=== PATIENT | female | born 1940 | race African-American/Black ===

== ENCOUNTER 2019-04-20 16:49 | Inpatient (IN) | payer OTHER ==
[~2019-04-20] VITALS: Ht 154.9 cm; Wt 74.8 kg
[2019-04-20 12:45] VITALS: BP 116/77
[2019-04-20] MEDS ORDERED: ONDANSETRON HCL 4MG/2ML INJ IV STA (17:33)
[2019-04-20] MEDS ORDERED: SODIUM CHLORIDE 0.9% 1,000 ML IV ONE (17:33)
[2019-04-20] MEDS ORDERED: MORPHINE SULFATE 4 MG/ML CPJ (NOT FOR IM USE) IV STA (17:33)
[2019-04-20 18:28] LABS: HEMATOCRIT. 26.3 % (36.0-48.0); HEMOGLOBIN. 8.6 g/dL (12.0-16.0); MEAN CORPUSCULAR HEMOGLOBIN 35.1 pg (28.0-32.0); MEAN CORPUSCULAR VOLUME 107.3 fL (81.0-99.0); MEAN PLATELET VOLUME 10.9 fl (7.4-10.4); PLATELET 139 x1000/uL (130-400); RED BLOOD CELL COUNT 2.45 mill/uL (4.2-5.4); RED CELL DISTRIBUTION WIDTH 20.3 % (11.6-14.6)
[2019-04-20 18:31] LABS: CHLORIDE 105 mEq/L (98-107)
[2019-04-20 19:41] LABS: PLATELET ESTIMATE NORMAL
[2019-04-20] MEDS ORDERED: KETOROLAC 15MG/ML VIAL IV ONE (20:00)
[2019-04-20] MEDS ORDERED: MORPHINE SULFATE 4 MG/ML CPJ (NOT FOR IM USE) IV ONE (20:00)
[2019-04-20] MEDS ORDERED: ASPIRIN 325MG TABLET PO ONE (20:00)
[2019-04-20] MEDS ORDERED: FUROSEMIDE 20MG/2ML VIAL IVP SCH (22:45)
[2019-04-21] MEDS ORDERED: DIGOXIN 500MCG/2ML AMP IV SCH (00:30)
[2019-04-21 00:45] VITALS: BP 116/77
[2019-04-21] MEDS ORDERED: LENA25CA MT ×2 (01:49→14:09)
[2019-04-21] MEDS ORDERED: NIFE20CA PO (01:49)
[2019-04-21] MEDS ORDERED: DEXA4TAB PO (01:49)
[2019-04-21] MEDS ORDERED: CHOL20004 MT (01:49)
[2019-04-21] MEDS ORDERED: ASPI-1393 PO (01:49)
[2019-04-21] MEDS ORDERED: KRIL500C PO (01:49)
[2019-04-21] MEDS ORDERED: METO-396 MT (01:49)
[2019-04-21] MEDS ORDERED: CYAN-33 MT (01:49)
[2019-04-21] MEDS ORDERED: ONDANSETRON HCL 4MG/2ML INJ IV PRN (03:45)
[2019-04-21 03:57] LABS: CREATINE KINASE 37 IU/L (26-192)
[2019-04-21 04:02] LABS: CREATINE KINASE MB FRACTION < 1.0 ng/mL (0.5-3.6)
[2019-04-21] MEDS: MORPHINE SULFATE 2 MG/ML CPJ (NOT FOR IM USE) IV PRN ×2 (04:40→08:49)
[2019-04-21 08:00] VITALS: BP 136/56
[2019-04-21] MEDS: DEXAMETHASONE 4MG TABLET PO SCH (08:46)
[2019-04-21] MEDS: METOPROLOL TARTRATE 25MG TABLET PO SCH ×2 (08:47→21:54)
[2019-04-21] MEDS ORDERED: ENOXAPARIN 40MG/0.4ML SYR SUBCUT SCH (09:00)
[2019-04-21] MEDS ORDERED: NIFEDIPINE XL 60MG TAB PO SCH (09:00)
[2019-04-21] MEDS ORDERED: ENOXAPARIN 30MG/0.3ML SYR SUBCUT SCH (09:00)
[2019-04-21 12:00] VITALS: BP 129/66
[2019-04-21] MEDS ORDERED: INFLUENZA VIRUS VACCINE(AFLURIA) 0.5ML SYR IM ONE (12:00)
[2019-04-21] MEDS ORDERED: FUROSEMIDE 40MG/4ML VIAL IVP NR (12:58)
[2019-04-21 13:45] LABS: BG BASE EXCESS -7.7 mmol/L (-2.0-2.0); BG CARBOXYHEMOGLOBIN 1.3 % (0.5-1.5); BG DEOXYHEMOGLOBIN 11.8 % (0.0-5.0); BG FRACTION INSPIRED OXYGEN 21; BG HCO3 ACT 16.4 mmol/L (22.0-26.0); BG METHEMOGLOBIN 0.3 % (0.0-1.5); BG OXYHEMOGLOBIN 86.6 % (94.0-97.0); BG PCO2 28.4 mmHg (35.0-45.0); BG SAMPLE SITE RIGHT RADIAL; BG TOTAL HEMOGLOBIN 8.3 g/dL (12.0-18.0); BG VENT MODE ROOM AIR
[2019-04-21] MEDS ORDERED: DEXTROSE 50% WATER 50ML SYRINGE IV PRN (15:45)
[2019-04-21] MEDS ORDERED: LEVOFLOXACIN 500MG PREMIX 100 ML IV SCH (15:45)
[2019-04-21] MEDS ORDERED: ACETAMINOPHEN 325MG TABLET PO PRN (15:45)
[2019-04-21] MEDS ORDERED: LORAZEPAM 2MG/ML CPJ IV PRN (15:45)
[2019-04-21] MEDS ORDERED: HYDRALAZINE 20MG/ML VIAL IV PRN (15:45)
[2019-04-21] MEDS ORDERED: DIPHENHYDRAMINE 50MG/ML VIAL IV PRN (15:45)
[2019-04-21] MEDS ORDERED: IPRATROPIUM/ALBUTEROL 0.5-3(2.5)MG/3ML NEB HHN PRN (15:45)
[2019-04-21] MEDS ORDERED: ACETAMINOPHEN 650MG SUPP PR PRN (15:45)
[2019-04-21] MEDS ORDERED: LACTULOSE 20G/30ML UDC PO PRN (15:45)
[2019-04-21] MEDS ORDERED: MAGNESIUM/ALUMINUM HYDROXIDE/SIMETHICONE 30ML UDC PO PRN (15:45)
[2019-04-21 15:52] VITALS: BP 121/64
[2019-04-21] MEDS: AMLODIPINE 2.5MG TABLET PO SCH (15:53)
[2019-04-21] MEDS: ASPIRIN 81MG TABLET PO SCH (15:53)
[2019-04-21] MEDS: FUROSEMIDE 40MG/4ML VIAL IVP SCH ×2 (15:54→17:12)
[2019-04-21] MEDS: BLOOD SUGAR DIAGNOSTIC STRIP TEST SCH ×2 (17:01→21:49)
[2019-04-21] MEDS: INSULIN LISPRO 100 UNITS/ML SUBCUT SCH ×2 (17:03→21:00)
[2019-04-21] MEDS: FAMOTIDINE 20MG/2ML VIAL IV SCH (17:13)
[2019-04-21] MEDS: REVLIMID 25 MG PO SCH (17:37)
[2019-04-21] MEDS ORDERED: LEVOFLOXACIN 500MG PREMIX 100 ML IV NR (18:00)
[2019-04-21 18:10] LABS: CLARITY URINE CLOUDY (CLEAR); COLOR URINE YELLOW (YELLOW); KETONES URINE NEGATIVE (NEGATIVE); LEUKOCYTE ESTERASE URINE TRACE (NEGATIVE); NITRITE URINE NEGATIVE (NEGATIVE); OCCULT BLOOD URINE NEGATIVE (NEGATIVE); PROTEIN URINE 1+ (NEGATIVE); SPECIFIC GRAVITY URINE 1.016 (1.005-1.030)
[2019-04-21] MEDS ORDERED: MORPHINE SULFATE 2 MG/ML CPJ (NOT FOR IM USE) IV PRN (19:45)
[2019-04-21 20:00] VITALS: BP 117/66
[2019-04-21 20:27] LABS: INR 1.4
[2019-04-21 20:29] LABS: CHLORIDE 104 mEq/L (98-107)
[2019-04-21] MEDS: IPRATROPIUM/ALBUTEROL 0.5-3(2.5)MG/3ML NEB HHN SCH (20:37)
[2019-04-21] MEDS: BUDESONIDE 0.5MG/2ML NEB HHN SCH (20:37)
[2019-04-21 20:39] LABS: CREATINE KINASE 51 IU/L (26-192)
[2019-04-21 20:41] LABS: CREATINE KINASE MB FRACTION < 1.0 ng/mL (0.5-3.6)
[2019-04-21 20:50] LABS: HEMATOCRIT. 23.6 % (36.0-48.0); HEMOGLOBIN. 7.6 g/dL (12.0-16.0); MEAN CORPUSCULAR HEMOGLOBIN 34.4 pg (28.0-32.0); MEAN CORPUSCULAR VOLUME 106.8 fL (81.0-99.0); MEAN PLATELET VOLUME 11.5 fl (7.4-10.4); PLATELET 70 x1000/uL (130-400); RED BLOOD CELL COUNT 2.21 mill/uL (4.2-5.4); RED CELL DISTRIBUTION WIDTH 20.7 % (11.6-14.6)
[2019-04-21 22:33] LABS: PLATELET ESTIMATE MARKEDLY DECREASED
[2019-04-22] VITALS: BP 115/75
[2019-04-22] MEDS: IPRATROPIUM/ALBUTEROL 0.5-3(2.5)MG/3ML NEB HHN SCH ×4 (01:11→20:33)
[2019-04-22 04:00] VITALS: BP 125/89
[2019-04-22] MEDS: BLOOD SUGAR DIAGNOSTIC STRIP TEST SCH ×4 (06:21→21:00)
[2019-04-22] MEDS: INSULIN LISPRO 100 UNITS/ML SUBCUT SCH ×4 (06:41→21:00)
[2019-04-22] MEDS: FUROSEMIDE 40MG/4ML VIAL IVP SCH ×2 (06:41→17:20)
[2019-04-22 08:00] VITALS: BP 122/59
[2019-04-22] MEDS: BUDESONIDE 0.5MG/2ML NEB HHN SCH ×2 (08:11→20:33)
[2019-04-22] MEDS: ASPIRIN 81MG TABLET PO SCH (08:23)
[2019-04-22] MEDS: CARVEDILOL 3.125 MG TABLET PO SCH ×2 (08:23→21:00)
[2019-04-22] MEDS: AMLODIPINE 2.5MG TABLET PO SCH (08:23)
[2019-04-22] MEDS: DEXAMETHASONE 4MG TABLET PO SCH (08:23)
[2019-04-22] MEDS: REVLIMID 25 MG PO SCH (08:24)
[2019-04-22] MEDS: FAMOTIDINE 20MG/2ML VIAL IV SCH (08:25)
[2019-04-22] MEDS ORDERED: POTASSIUM CHLORIDE 20MEQ TABLET SR PO SCH (09:00)
[2019-04-22 12:00] VITALS: BP 121/51
[2019-04-22 12:15] LABS: BG BASE EXCESS -9.8 mmol/L (-2.0-2.0); BG CARBOXYHEMOGLOBIN 0.7 % (0.5-1.5); BG FRACTION INSPIRED OXYGEN 21; BG HCO3 ACT 14.7 mmol/L (22.0-26.0); BG METHEMOGLOBIN 0.1 % (0.0-1.5); BG OXYGEN SATURATION 47.6 % (92.0-98.5); BG OXYHEMOGLOBIN 47.2 % (94.0-97.0); BG PCO2 26.9 mmHg (35.0-45.0); BG PH 7.354 (7.350-7.450); BG SAMPLE SITE RIGHT RADIAL; BG TOTAL HEMOGLOBIN 8.1 g/dL (12.0-18.0); BG VENT MODE ROOM AIR
[2019-04-22 15:58] LABS: MEAN CORPUSCULAR HEMOGLOBIN 34.9 pg (28.0-32.0); MEAN CORPUSCULAR VOLUME 105.1 fL (81.0-99.0); MEAN PLATELET VOLUME 11.7 fl (7.4-10.4); PLATELET 75 x1000/uL (130-400); RED BLOOD CELL COUNT 1.99 mill/uL (4.2-5.4); RED CELL DISTRIBUTION WIDTH 20.1 % (11.6-14.6)
[2019-04-22 16:00] VITALS: BP 131/58
[2019-04-22 16:06] LABS: HEMATOCRIT. 20.9 % (36.0-48.0); HEMOGLOBIN. 6.9 g/dL (12.0-16.0)
[2019-04-22] MEDS ORDERED: FUROSEMIDE 40MG/4ML VIAL IVP NR (18:00)
[2019-04-22] MEDS ORDERED: LEVOFLOXACIN 250MG PREMIX 50 ML IV SCH (18:00)
[2019-04-22 20:00] VITALS: BP 119/85
[2019-04-23] VITALS (12 sets, daily range): BP systolic 115–141; BP diastolic 42–75
[2019-04-23 00:38] LABS: PLATELET ESTIMATE DECREASED
[2019-04-23] MEDS: IPRATROPIUM/ALBUTEROL 0.5-3(2.5)MG/3ML NEB HHN SCH ×4 (02:34→20:08)
[2019-04-23] MEDS: INSULIN LISPRO 100 UNITS/ML SUBCUT SCH ×4 (06:00→20:52)
[2019-04-23] MEDS: BLOOD SUGAR DIAGNOSTIC STRIP TEST SCH ×4 (06:26→20:52)
[2019-04-23 07:19] LABS: BASOPHILS % 0.1 % (0.0-2.0); EOSINOPHILS % 0.3 % (0.0-5.0); HEMATOCRIT. 24.5 % (36.0-48.0); HEMOGLOBIN. 8.2 g/dL (12.0-16.0); LYMPHOCYTES % 10.3 % (20.0-50.0); MEAN CORPUSCULAR HEMOGLOBIN 34.1 pg (28.0-32.0); MEAN CORPUSCULAR VOLUME 101.2 fL (81.0-99.0); MEAN PLATELET VOLUME 11.7 fl (7.4-10.4); MONOCYTES % 37.5 % (2.0-8.0); NEUTROPHILS % 51.8 % (40.0-76.0); PLATELET 64 x1000/uL (130-400); RED BLOOD CELL COUNT 2.42 mill/uL (4.2-5.4); RED CELL DISTRIBUTION WIDTH 21.3 % (11.6-14.6)
[2019-04-23] MEDS: DEXAMETHASONE 4MG TABLET PO SCH (08:48)
[2019-04-23] MEDS: REVLIMID 25 MG PO SCH (08:48)
[2019-04-23] MEDS: FAMOTIDINE 20MG/2ML VIAL IV SCH (08:49)
[2019-04-23] MEDS: CARVEDILOL 3.125 MG TABLET PO SCH ×2 (08:49→20:49)
[2019-04-23] MEDS: AMLODIPINE 2.5MG TABLET PO SCH (08:49)
[2019-04-23] MEDS: FUROSEMIDE 40MG/4ML VIAL IVP SCH (09:00)
[2019-04-23] MEDS: BUDESONIDE 0.5MG/2ML NEB HHN SCH ×2 (09:19→20:08)
[2019-04-23 09:50] LABS: BG BASE EXCESS -2.7 mmol/L (-2.0-2.0); BG CARBOXYHEMOGLOBIN 0.4 % (0.5-1.5); BG DEOXYHEMOGLOBIN 2.3 % (0.0-5.0); BG FRACTION INSPIRED OXYGEN 32; BG HCO3 ACT 21.3 mmol/L (22.0-26.0); BG METHEMOGLOBIN 0.1 % (0.0-1.5); BG OXYGEN SATURATION 97.7 % (92.0-98.5); BG OXYHEMOGLOBIN 97.2 % (94.0-97.0); BG PCO2 33.5 mmHg (35.0-45.0); BG PH 7.421 (7.350-7.450); BG PO2 105.1 mmHg (75.0-100.0); BG SAMPLE SITE RIGHT BRACHIAL; BG TOTAL HEMOGLOBIN 9.5 g/dL (12.0-18.0); BG VENT MODE NASAL CANNULA
[2019-04-23] MEDS ORDERED: LOSARTAN POTASSIUM 25 MG TABLET PO NR (15:30)
[2019-04-23] MEDS: LEVOFLOXACIN 250MG TABLET PO SCH (17:00)
[2019-04-24] VITALS: BP 150/66
[2019-04-24] MEDS: IPRATROPIUM/ALBUTEROL 0.5-3(2.5)MG/3ML NEB HHN SCH ×4 (02:02→19:58)
[2019-04-24 04:00] VITALS: BP 144/64
[2019-04-24] MEDS: BLOOD SUGAR DIAGNOSTIC STRIP TEST SCH ×3 (06:08→17:10)
[2019-04-24] MEDS: INSULIN LISPRO 100 UNITS/ML SUBCUT SCH ×3 (06:08→17:40)
[2019-04-24 06:17] LABS: HEMATOCRIT. 23.4 % (36.0-48.0); HEMOGLOBIN. 7.9 g/dL (12.0-16.0); MEAN CORPUSCULAR HEMOGLOBIN 34.1 pg (28.0-32.0); MEAN CORPUSCULAR VOLUME 100.7 fL (81.0-99.0); MEAN PLATELET VOLUME 11.6 fl (7.4-10.4); PLATELET 53 x1000/uL (130-400); RED BLOOD CELL COUNT 2.32 mill/uL (4.2-5.4); RED CELL DISTRIBUTION WIDTH 21.4 % (11.6-14.6)
[2019-04-24 08:00] VITALS: BP 113/64
[2019-04-24] MEDS: BUDESONIDE 0.5MG/2ML NEB HHN SCH ×2 (08:03→19:57)
[2019-04-24 08:25] LABS: PLATELET ESTIMATE MARKEDLY DECREASED
[2019-04-24] MEDS: AMLODIPINE 2.5MG TABLET PO SCH (08:54)
[2019-04-24] MEDS: REVLIMID 25 MG PO SCH (09:13)
[2019-04-24] MEDS: FUROSEMIDE 40MG/4ML VIAL IVP SCH (09:14)
[2019-04-24] MEDS: FAMOTIDINE 20MG/2ML VIAL IV SCH (09:15)
[2019-04-24] MEDS: DEXAMETHASONE 4MG TABLET PO SCH (09:15)
[2019-04-24] MEDS: CARVEDILOL 3.125 MG TABLET PO SCH (09:15)
[2019-04-24 12:00] VITALS: BP 140/89
[2019-04-24 16:12] VITALS: BP 125/64
[2019-04-24] MEDS: LEVOFLOXACIN 250MG TABLET PO SCH (18:00)
[2019-04-24] MEDS ORDERED: FUROSEMIDE 40MG TABLET PO SCH (21:00)
[2019-04-25] MEDS ORDERED: LOSARTAN POTASSIUM 25 MG TABLET PO SCH (09:00)
[2019-04-26 04:08] LABS: KAPPA LT CHAINS FREE SERUM 150.3 mg/L (3.3-19.4); KAPPA/LAMBDA RATIO 4.62 (0.26-1.65); LAMBDA LT CHAINS FREE SERUM 32.5 mg/L (5.7-26.3)
== END 2019-04-24 19:45 | DRG 291 ==
LOC: ER 16:49 → 8WST 22:40 → EDBEDREQTM 22:43 → EDBEDREQ 22:43 → ENRESERV 23:17
PROVIDERS: ADMIT Internal Medicine; ATTEND Internal Medicine
DX: I13.0 Hypertensive heart and chronic kidney disease with heart failure and stage 1 through stage 4 chronic kidney disease, or unspecified chronic kidney disease (principal); I50.43 Acute on chronic combined systolic (congestive) and diastolic (congestive) heart failure; C90.00 Multiple myeloma not having achieved remission; E87.2 Acidosis; I31.3 Pericardial effusion (noninflammatory); N17.9 Acute kidney failure, unspecified; I27.20 Pulmonary hypertension, unspecified; E11.65 Type 2 diabetes mellitus with hyperglycemia; N18.9 Chronic kidney disease, unspecified; D64.9 Anemia, unspecified; D75.89 Other specified diseases of blood and blood-forming organs; E11.22 Type 2 diabetes mellitus with diabetic chronic kidney disease; E87.5 Hyperkalemia; I07.1 Rheumatic tricuspid insufficiency; J11.1 Influenza due to unidentified influenza virus with other respiratory manifestations; I34.0 Nonrheumatic mitral (valve) insufficiency; R09.02 Hypoxemia; Z79.899 Other long term (current) drug therapy; Z82.49 Family history of ischemic heart disease and other diseases of the circulatory system; Z88.0 Allergy status to penicillin; Z88.5 Allergy status to narcotic agent; Z88.8 Allergy status to other drugs, medicaments and biological substances; Z79.82 Long term (current) use of aspirin
CPT/HCPCS: 36415; 36600; 71045; 80048; 81003; 82375; 82550; 82553; 82784; 82805; 82962; 83010; 83036; 83615; 83880; 83883; 84484; 85044; 86850; 86880; 86900; 86920; 87804; 90686; 93005; 93306; 93970; 94640; 96374; 97162; 99285; C1893; J1160; J1650; J1815; J1885; J1940; J1956; J2270; J2405; J3490; J7030; J7620; J7626; J8540; P9016

== ENCOUNTER 2019-05-11 07:09 | Inpatient (IN) | payer OTHER ==
[~2019-05-11] VITALS: Ht 154.9 cm; Wt 56.7 kg
[~2019-05-11 07:09] MED LIST: ASPI-1393 PO; CHOL20004 MT; CYAN-33 MT; DEXA4TAB PO; KRIL500C PO; LENA25CA MT
[2019-05-11] MEDS ORDERED: KETOROLAC 15MG/ML VIAL IV ONE (08:00)
[2019-05-11 08:29] LABS: HEMATOCRIT. 25.3 % (36.0-48.0); HEMOGLOBIN. 8.1 g/dL (12.0-16.0); MEAN CORPUSCULAR HEMOGLOBIN 33.2 pg (28.0-32.0); MEAN CORPUSCULAR VOLUME 103.3 fL (81.0-99.0); MEAN PLATELET VOLUME 9.2 fl (7.4-10.4); PLATELET 117 x1000/uL (130-400); RED BLOOD CELL COUNT 2.45 mill/uL (4.2-5.4); RED CELL DISTRIBUTION WIDTH 21.2 % (11.6-14.6)
[2019-05-11 08:34] LABS: CHLORIDE 109 mEq/L (98-107)
[2019-05-11 09:00] LABS: PLATELET ESTIMATE DECREASED
[2019-05-11 10:53] LABS: CLARITY URINE CLEAR (CLEAR); COLOR URINE YELLOW (YELLOW); KETONES URINE NEGATIVE (NEGATIVE); LEUKOCYTE ESTERASE URINE NEGATIVE (NEGATIVE); NITRITE URINE NEGATIVE (NEGATIVE); OCCULT BLOOD URINE NEGATIVE (NEGATIVE); PROTEIN URINE TRACE (NEGATIVE); SPECIFIC GRAVITY URINE 1.036 (1.005-1.030)
[2019-05-11] MEDS ORDERED: IOHEXOL-300 100 ML BOTTLE ONE (13:58)
[2019-05-11] MEDS ORDERED: HYDROCODONE/ACETAMINOPHEN 5/325MG TABLET PO PRN (17:00)
[2019-05-11] MEDS ORDERED: IPRATROPIUM/ALBUTEROL 0.5-3(2.5)MG/3ML NEB NEB PRN (17:00)
[2019-05-11] MEDS ORDERED: FUROSEMIDE 40MG/4ML VIAL IVP SCH (17:00)
[2019-05-11] MEDS ORDERED: CLONIDINE 0.1MG TABLET PO PRN (17:00)
[2019-05-11] MEDS ORDERED: MAGNESIUM/ALUMINUM HYDROXIDE/SIMETHICONE 30ML UDC PO PRN (17:00)
[2019-05-11] MEDS ORDERED: DOCUSATE SODIUM 100MG CAPSULE PO PRN (17:00)
[2019-05-11] MEDS ORDERED: ACETAMINOPHEN 650MG SUPP PR PRN (17:00)
[2019-05-11] MEDS ORDERED: DIPHENHYDRAMINE 50MG/ML VIAL IV PRN (17:00)
[2019-05-11] MEDS ORDERED: GUAIFENESIN 200MG/10ML SUGAR FREE UDC PO PRN (17:00)
[2019-05-11] MEDS ORDERED: ONDANSETRON HCL 4MG/2ML INJ IV PRN (17:00)
[2019-05-11] MEDS ORDERED: NA PHOS,M-B/NA PHOS,DI-BA ENEMA 118ML PR PRN (17:30)
[2019-05-11] MEDS ORDERED: LORAZEPAM 0.5MG TABLET PO PRN (17:30)
[2019-05-11] MEDS ORDERED: POTASSIUM CHLORIDE INJ 40 MEQ in DEXT 5% WATER 250 ML IV NR (21:00)
[2019-05-11] MEDS ORDERED: AZTREONAM 1 G in DEXTROSE 5% WATER 50 ML IV NR (21:00)
[2019-05-11] MEDS ORDERED: DEXAMETHASONE 4MG TABLET PO NR (21:00)
[2019-05-11 22:20] VITALS: BP 134/49
[2019-05-11 22:38] VITALS: BP 134/49
[2019-05-11] MEDS ORDERED: LEVOFLOXACIN 500MG PREMIX 100 ML IV NR (23:30)
[2019-05-12] VITALS: BP 138/54
[2019-05-12 00:49] LABS: CREATINE KINASE 11 IU/L (26-192)
[2019-05-12 01:00] LABS: CREATINE KINASE MB FRACTION < 1.0 ng/mL (0.5-3.6)
[2019-05-12] MEDS ORDERED: VANCOMYCIN 1250MG in DEXTROSE 5% WATER 250ML IV NR (01:00)
[2019-05-12 04:00] VITALS: BP 128/77
[2019-05-12 08:00] VITALS: BP 153/59
[2019-05-12] MEDS ORDERED: AZTREONAM 1 G in DEXTROSE 5% WATER 50 ML IV SCH (09:00)
[2019-05-12] MEDS ORDERED: MEDICATION NOT ON FORMULARY EA (Cholecalciferol (Vitamin D) 1 CAP) MT SCH (09:00)
[2019-05-12] MEDS ORDERED: CYANOCOBALAMIN MT SCH (09:00)
[2019-05-12] MEDS: CYANOCOBALAMIN 1000MCG TABLET PO SCH (09:03)
[2019-05-12] MEDS: CHOLECALCIFEROL (D3) 1000 UNIT TABLET PO SCH (09:03)
[2019-05-12] MEDS: DEXAMETHASONE 4MG TABLET PO SCH (09:03)
[2019-05-12] MEDS: LENALIDOMIDE 25 MG PO SCH (09:04)
[2019-05-12] MEDS: FUROSEMIDE 40MG/4ML VIAL IVP SCH ×2 (09:10→10:11)
[2019-05-12 09:36] LABS: HEMATOCRIT. 25.4 % (36.0-48.0); HEMOGLOBIN. 8.2 g/dL (12.0-16.0); MEAN CORPUSCULAR HEMOGLOBIN 33.4 pg (28.0-32.0); MEAN CORPUSCULAR VOLUME 103.6 fL (81.0-99.0); MEAN PLATELET VOLUME 9.3 fl (7.4-10.4); PLATELET 111 x1000/uL (130-400); RED BLOOD CELL COUNT 2.45 mill/uL (4.2-5.4); RED CELL DISTRIBUTION WIDTH 21.9 % (11.6-14.6)
[2019-05-12 09:44] LABS: CHLORIDE 111 mEq/L (98-107)
[2019-05-12 09:52] LABS: CREATINE KINASE MB FRACTION < 1.0 ng/mL (0.5-3.6); LDL CHOLESTEROL 57 mg/dL (5-100)
[2019-05-12 09:53] LABS: CREATINE KINASE 11 IU/L (26-192); HDL CHOLESTEROL 43 mg/dL (40-59)
[2019-05-12 09:54] LABS: T4 FREE 1.63 ng/dL (0.76-1.46)
[2019-05-12] MEDS ORDERED: DILTIAZEM HCL 5MG/ML 5ML VIAL IV NR (10:45)
[2019-05-12 12:00] VITALS: BP 144/67
[2019-05-12 12:37] LABS: PLATELET ESTIMATE SLIGHTLY DECREASED
[2019-05-12 12:49] LABS: *AMPHETAMINES SCREEN URINE NEGATIVE (NEGATIVE)
[2019-05-12 12:50] LABS: *BARBITURATES SCREEN URINE NEGATIVE (NEGATIVE); *BENZODIAZEPINES SCREEN URINE NEGATIVE (NEGATIVE); *COCAINE SCREEN URINE NEGATIVE (NEGATIVE); METHADONE URINE SCREEN NEGATIVE (NEGATIVE); OPIATES URINE SCREEN NEGATIVE (NEGATIVE); PHENCYCLIDINE URINE SCREEN NEGATIVE (NEGATIVE)
[2019-05-12 12:51] LABS: CANNABINOID URINE SCREEN NEGATIVE (NEGATIVE)
[2019-05-12] MEDS ORDERED: VANCOMYCIN 500 MG PREMIX 100 ML IV SCH (13:00)
[2019-05-12 16:00] VITALS: BP 152/67
[2019-05-12 20:00] VITALS: BP 101/53
[2019-05-12] MEDS: LEVOFLOXACIN 250MG PREMIX 50 ML IV SCH (20:56)
[2019-05-12] MEDS: VANCOMYCIN 750 MG PREMIX 150 ML IV SCH (20:56)
[2019-05-12] MEDS: DILTIAZEM HCL 30MG TABLET PO SCH (22:07)
[2019-05-12] MEDS: AZTREONAM 1G in DEXTROSE 5% WATER 50ML IV SCH (23:24)
[2019-05-13] VITALS (9 sets, daily range): BP systolic 122–147; BP diastolic 33–78
[2019-05-13 06:21] LABS: HEMATOCRIT. 21.6 % (36.0-48.0); MEAN CORPUSCULAR HEMOGLOBIN 33.4 pg (28.0-32.0); MEAN PLATELET VOLUME 9.8 fl (7.4-10.4); PLATELET 88 x1000/uL (130-400); RED CELL DISTRIBUTION WIDTH 21.5 % (11.6-14.6)
[2019-05-13] MEDS: DILTIAZEM HCL 30MG TABLET PO SCH ×3 (06:31→19:56)
[2019-05-13 06:34] LABS: CHLORIDE 108 mEq/L (98-107)
[2019-05-13] MEDS: FUROSEMIDE 40MG/4ML VIAL IVP SCH (09:07)
[2019-05-13] MEDS: LENALIDOMIDE 25 MG PO SCH (09:08)
[2019-05-13] MEDS: CHOLECALCIFEROL (D3) 1000 UNIT TABLET PO SCH (09:08)
[2019-05-13] MEDS: AZTREONAM 1G in DEXTROSE 5% WATER 50ML IV SCH ×2 (09:08→21:44)
[2019-05-13] MEDS: CYANOCOBALAMIN 1000MCG TABLET PO SCH (09:08)
[2019-05-13] MEDS: DEXAMETHASONE 4MG TABLET PO SCH (11:34)
[2019-05-13 11:42] LABS: PLATELET ESTIMATE DECREASED
[2019-05-13 15:53] LABS: INR 1.2
[2019-05-13] MEDS: VANCOMYCIN 750 MG PREMIX 150 ML IV SCH (16:17)
[2019-05-13] MEDS: LEVOFLOXACIN 250MG PREMIX 50 ML IV SCH (21:44)
[2019-05-13] MEDS: ACETAMINOPHEN 325MG TABLET PO PRN (22:29)
[2019-05-14] VITALS: BP 123/58
[2019-05-14] MEDS: DILTIAZEM HCL 30MG TABLET PO SCH ×4 (00:34→18:32)
[2019-05-14 01:12] LABS: HEMATOCRIT 27.8 % (36.0-48.0); HEMOGLOBIN 9.2 g/dL (12.0-16.0)
[2019-05-14 01:16] LABS: INR 1.2; PROTHROMBIN TIME 11.9 sec (9.6-11.0)
[2019-05-14 04:00] VITALS: BP 149/74
[2019-05-14 07:38] LABS: CHLORIDE 108 mEq/L (98-107)
[2019-05-14 08:00] VITALS: BP 138/55
[2019-05-14] MEDS ORDERED: SODIUM BICARBONATE 4% (2.4MEQ) 5ML VIAL IV ONE (08:11)
[2019-05-14] MEDS: CYANOCOBALAMIN 1000MCG TABLET PO SCH (10:06)
[2019-05-14] MEDS: LENALIDOMIDE 25 MG PO SCH (10:06)
[2019-05-14] MEDS: DEXAMETHASONE 4MG TABLET PO SCH (10:06)
[2019-05-14] MEDS: CHOLECALCIFEROL (D3) 1000 UNIT TABLET PO SCH (10:06)
[2019-05-14] MEDS: AZTREONAM 1G in DEXTROSE 5% WATER 50ML IV SCH ×2 (10:07→21:39)
[2019-05-14] MEDS: VANCOMYCIN 750 MG PREMIX 150 ML IV SCH (10:07)
[2019-05-14] MEDS: FUROSEMIDE 40MG/4ML VIAL IVP SCH (10:20)
[2019-05-14 12:00] VITALS: BP 135/70
[2019-05-14 12:22] LABS: HEMOGLOBIN. 9.6 g/dL (12.0-16.0); MEAN CORPUSCULAR HEMOGLOBIN 32.2 pg (28.0-32.0); MEAN CORPUSCULAR VOLUME 96.9 fL (81.0-99.0); MEAN PLATELET VOLUME 8.3 fl (7.4-10.4); PLATELET 75 x1000/uL (130-400); RED BLOOD CELL COUNT 2.99 mill/uL (4.2-5.4); RED CELL DISTRIBUTION WIDTH 21.8 % (11.6-14.6)
[2019-05-14 12:48] LABS: PLATELET ESTIMATE DECREASED
[2019-05-14 16:00] VITALS: BP 150/50
[2019-05-14] MEDS ORDERED: FURO-151 MT (17:20)
[2019-05-14] MEDS ORDERED: COR3 MT (17:20)
[2019-05-14 20:46] VITALS: BP 136/50
[2019-05-14] MEDS: LEVOFLOXACIN 250MG PREMIX 50 ML IV SCH (20:54)
[2019-05-15] MEDS: DILTIAZEM HCL 30MG TABLET PO SCH ×3 (00:23→12:45)
[2019-05-15 00:28] VITALS: BP 155/55
[2019-05-15] MEDS: VANCOMYCIN 750 MG PREMIX 150 ML IV SCH (03:01)
[2019-05-15 04:00] VITALS: BP 151/58
[2019-05-15 06:04] LABS: HEMATOCRIT 28.1 % (36.0-48.0); HEMOGLOBIN 9.4 g/dL (12.0-16.0); MEAN CORPUSCULAR HEMOGLOBIN 32.5 pg (28.0-32.0); MEAN CORPUSCULAR VOLUME 97.6 fL (81.0-99.0); PLATELET 81 x1000/uL (130-400); RED BLOOD CELL COUNT 2.88 mill/uL (4.2-5.4)
[2019-05-15 08:49] VITALS: BP 140/44
[2019-05-15] MEDS: CYANOCOBALAMIN 1000MCG TABLET PO SCH (09:13)
[2019-05-15] MEDS: AZTREONAM 1G in DEXTROSE 5% WATER 50ML IV SCH (09:13)
[2019-05-15] MEDS: DEXAMETHASONE 4MG TABLET PO SCH (09:13)
[2019-05-15] MEDS: CHOLECALCIFEROL (D3) 1000 UNIT TABLET PO SCH (09:13)
[2019-05-15] MEDS: FUROSEMIDE 40MG/4ML VIAL IVP SCH (09:13)
[2019-05-15] MEDS: LENALIDOMIDE 25 MG PO SCH (09:14)
[2019-05-15 12:00] VITALS: BP 157/40
[2019-05-15] MEDS: ACETAMINOPHEN 325MG TABLET PO PRN (15:52)
[2019-05-15 16:17] VITALS: BP 152/48
[2019-05-15 16:49] VITALS: BP 152/48
== END 2019-05-15 18:54 | disposition home or self-care (01) | DRG 871 ==
LOC: ER 07:34 → 5WST 14:17 → ENRESERV 18:02 → CANRESERV 18:02 → EDBEDREQSVC 20:02 → EDBEDREQTM 20:02 → ENRESERV 20:49 → 6WST 05-12 17:16
PROVIDERS: ADMIT Internal Medicine; ATTEND Internal Medicine
PROC: 30233N1 Transfusion of Nonautologous Red Blood Cells into Peripheral Vein, Percutaneous Approach (ICD-10-PCS; 2019-05-13)
PROC: 0W993ZZ Drainage of Right Pleural Cavity, Percutaneous Approach (ICD-10-PCS; principal; 2019-05-14)
DX: A41.9 Sepsis, unspecified organism (principal); I50.43 Acute on chronic combined systolic (congestive) and diastolic (congestive) heart failure; I13.0 Hypertensive heart and chronic kidney disease with heart failure and stage 1 through stage 4 chronic kidney disease, or unspecified chronic kidney disease; I31.3 Pericardial effusion (noninflammatory); E88.09 Other disorders of plasma-protein metabolism, not elsewhere classified; E87.6 Hypokalemia; I48.0 Paroxysmal atrial fibrillation; I27.20 Pulmonary hypertension, unspecified; E11.22 Type 2 diabetes mellitus with diabetic chronic kidney disease; K80.20 Calculus of gallbladder without cholecystitis without obstruction; N18.9 Chronic kidney disease, unspecified; J45.909 Unspecified asthma, uncomplicated; D35.02 Benign neoplasm of left adrenal gland; D64.9 Anemia, unspecified; E05.90 Thyrotoxicosis, unspecified without thyrotoxic crisis or storm; D69.6 Thrombocytopenia, unspecified; I08.1 Rheumatic disorders of both mitral and tricuspid valves; D75.89 Other specified diseases of blood and blood-forming organs; Z85.79 Personal history of other malignant neoplasms of lymphoid, hematopoietic and related tissues; Z82.3 Family history of stroke; Z82.49 Family history of ischemic heart disease and other diseases of the circulatory system; Z90.49 Acquired absence of other specified parts of digestive tract; Z88.6 Allergy status to analgesic agent; Z88.0 Allergy status to penicillin; Z88.8 Allergy status to other drugs, medicaments and biological substances; Z79.82 Long term (current) use of aspirin; Z79.899 Other long term (current) drug therapy
CPT/HCPCS: 32555; 36415; 71045; 74177; 76700; 80048; 80061; 80202; 80305; 81003; 82040; 82465; 82550; 82553; 83615; 83735; 84439; 84443; 84478; 84484; 85014; 85018; 85027; 85049; 85384; 86850; 86900; 86920; 88108; 88312; 93005; 96374; 97162; 99285; J1885; J1940; J1956; J3370; J3480; J3490; J7040; J7060; J8540; P9016; Q9967

== ENCOUNTER 2019-05-19 09:40 | Inpatient (IN) | payer OTHER ==
[~2019-05-19] VITALS: Ht 154.9 cm; Wt 60.0 kg
[~2019-05-19 09:40] MED LIST changes: +COR3 MT; +FURO-151 MT
[2019-05-19] MEDS ORDERED: MORPHINE SULFATE 4 MG/ML CPJ (NOT FOR IM USE) IV STA (11:36)
[2019-05-19] MEDS ORDERED: SODIUM CHLORIDE 0.9% 1,000 ML IV ONE (11:36)
[2019-05-19] MEDS ORDERED: ONDANSETRON HCL 4MG/2ML INJ IV STA (11:36)
[2019-05-19 12:12] LABS: HEMATOCRIT. 29.5 % (36.0-48.0); HEMOGLOBIN. 9.8 g/dL (12.0-16.0); MEAN CORPUSCULAR VOLUME 99.4 fL (81.0-99.0); MEAN PLATELET VOLUME 10.4 fl (7.4-10.4); PLATELET 62 x1000/uL (130-400); RED BLOOD CELL COUNT 2.97 mill/uL (4.2-5.4); RED CELL DISTRIBUTION WIDTH 21.6 % (11.6-14.6)
[2019-05-19 12:14] LABS: CHLORIDE 105 mEq/L (98-107)
[2019-05-19 12:32] LABS: INR 1.2; PARTIAL THROMBOPLASTIN TIME 26.8 sec (23.4-31.0); PROTHROMBIN TIME 12.3 sec (9.6-11.0)
[2019-05-19 12:43] LABS: PLATELET ESTIMATE DECREASED
[2019-05-19] MEDS ORDERED: SODIUM CHLORIDE 0.9% 1000ML BAG (SEPSIS BOLUS) IV ONE (13:00)
[2019-05-19] MEDS ORDERED: LEVOFLOXACIN 750MG PREMIX 150 ML IV ONE (13:00)
[2019-05-19 16:05] LABS: CLARITY URINE CLEAR (CLEAR); COLOR URINE YELLOW (YELLOW); KETONES URINE NEGATIVE (NEGATIVE); LEUKOCYTE ESTERASE URINE NEGATIVE (NEGATIVE); NITRITE URINE NEGATIVE (NEGATIVE); OCCULT BLOOD URINE NEGATIVE (NEGATIVE); PROTEIN URINE NEGATIVE (NEGATIVE); SPECIFIC GRAVITY URINE 1.022 (1.005-1.030)
[2019-05-19] MEDS ORDERED: ONDANSETRON HCL 4MG/2ML INJ IV PRN (16:45)
[2019-05-19] MEDS ORDERED: MAGNESIUM/ALUMINUM HYDROXIDE/SIMETHICONE 30ML UDC PO PRN (16:45)
[2019-05-19] MEDS ORDERED: DOCUSATE SODIUM 100MG CAPSULE PO PRN (16:45)
[2019-05-19] MEDS ORDERED: IPRATROPIUM/ALBUTEROL 0.5-3(2.5)MG/3ML NEB NEB PRN (16:45)
[2019-05-19] MEDS ORDERED: NA PHOS,M-B/NA PHOS,DI-BA ENEMA 118ML PR PRN (16:45)
[2019-05-19] MEDS ORDERED: CLONIDINE 0.1MG TABLET PO PRN (16:45)
[2019-05-19] MEDS ORDERED: DIPHENHYDRAMINE 50MG/ML VIAL IV PRN (16:45)
[2019-05-19] MEDS ORDERED: GUAIFENESIN 200MG/10ML SUGAR FREE UDC PO PRN (16:45)
[2019-05-19] MEDS ORDERED: ACETAMINOPHEN 650MG SUPP PR PRN (16:45)
[2019-05-19] MEDS ORDERED: ACETAMINOPHEN 325MG TABLET PO PRN (16:45)
[2019-05-19] MEDS ORDERED: LORAZEPAM 0.5MG TABLET PO PRN (16:45)
[2019-05-19 17:00] VITALS: BP 128/51
[2019-05-19 17:29] VITALS: BP 128/51
[2019-05-19] MEDS ORDERED: POTASSIUM CHLORIDE 20MEQ TABLET SR PO NR (17:30)
[2019-05-19] MEDS: FUROSEMIDE 40MG/4ML VIAL IVP SCH (17:50)
[2019-05-19 20:00] VITALS: BP 130/51
[2019-05-19] MEDS: CARVEDILOL 3.125 MG TABLET PO SCH (20:39)
[2019-05-19] MEDS: HYDROCODONE/ACETAMINOPHEN 5/325MG TABLET PO PRN (20:40)
[2019-05-19] MEDS: LENALIDOMIDE 25 MG PO SCH (22:09)
[2019-05-20] VITALS: BP 118/37
[2019-05-20 00:44] LABS: CREATINE KINASE MB FRACTION 1.1 ng/mL (0.5-3.6)
[2019-05-20 04:00] VITALS: BP 107/31
[2019-05-20] MEDS: HYDROCODONE/ACETAMINOPHEN 5/325MG TABLET PO PRN ×2 (06:12→18:10)
[2019-05-20 07:24] LABS: HEMOGLOBIN. 8.3 g/dL (12.0-16.0); MEAN CORPUSCULAR HEMOGLOBIN 32.8 pg (28.0-32.0); MEAN CORPUSCULAR VOLUME 99.2 fL (81.0-99.0); MEAN PLATELET VOLUME 10.2 fl (7.4-10.4); RED BLOOD CELL COUNT 2.52 mill/uL (4.2-5.4); RED CELL DISTRIBUTION WIDTH 20.9 % (11.6-14.6)
[2019-05-20 07:27] LABS: CHLORIDE 105 mEq/L (98-107)
[2019-05-20 07:37] LABS: LDL CHOLESTEROL 54 mg/dL (5-100)
[2019-05-20 07:39] LABS: CREATINE KINASE 15 IU/L (26-192); HDL CHOLESTEROL 27 mg/dL (40-59)
[2019-05-20 07:42] LABS: CREATINE KINASE MB FRACTION < 1.0 ng/mL (0.5-3.6)
[2019-05-20 07:55] LABS: PLATELET 40 x1000/uL (130-400)
[2019-05-20 08:00] VITALS: BP_SYST 115; BP_SYST 136; BP_DIAS 51; BP_DIAS 54
[2019-05-20] MEDS ORDERED: CYANOCOBALAMIN MT SCH (09:00)
[2019-05-20] MEDS ORDERED: MEDICATION NOT ON FORMULARY EA (Cholecalciferol (Vitamin D) 1 CAP) MT SCH (09:00)
[2019-05-20] MEDS: CHOLECALCIFEROL (D3) 1000 UNIT TABLET PO SCH (09:20)
[2019-05-20] MEDS: POTASSIUM CHLORIDE 20MEQ TABLET SR PO SCH (09:21)
[2019-05-20] MEDS: CYANOCOBALAMIN 1000MCG TABLET PO SCH (09:21)
[2019-05-20] MEDS: LENALIDOMIDE 25 MG PO SCH (09:21)
[2019-05-20] MEDS: ASPIRIN 81MG EC TABLET PO SCH (09:21)
[2019-05-20] MEDS: DEXAMETHASONE 4MG TABLET PO SCH (09:22)
[2019-05-20] MEDS: FUROSEMIDE 40MG/4ML VIAL IVP SCH (09:23)
[2019-05-20] MEDS: CARVEDILOL 3.125 MG TABLET PO SCH ×2 (09:23→20:53)
[2019-05-20 11:59] VITALS: BP 109/33
[2019-05-20 16:00] VITALS: BP 146/43
[2019-05-20 20:00] VITALS: BP 121/56
[2019-05-21] VITALS: BP 150/55
[2019-05-21 04:00] VITALS: BP 124/50
[2019-05-21 04:37] LABS: PLATELET ESTIMATE DECREASED
[2019-05-21 08:00] VITALS: BP 151/53
[2019-05-21] MEDS: DEXAMETHASONE 4MG TABLET PO SCH (08:23)
[2019-05-21] MEDS: ASPIRIN 81MG EC TABLET PO SCH (08:23)
[2019-05-21] MEDS: CHOLECALCIFEROL (D3) 1000 UNIT TABLET PO SCH (08:24)
[2019-05-21] MEDS: HYDROCODONE/ACETAMINOPHEN 5/325MG TABLET PO PRN ×2 (08:24→12:19)
[2019-05-21] MEDS: POTASSIUM CHLORIDE 20MEQ TABLET SR PO SCH (08:24)
[2019-05-21] MEDS: LENALIDOMIDE 25 MG PO SCH (08:25)
[2019-05-21] MEDS: FUROSEMIDE 40MG/4ML VIAL IVP SCH (08:25)
[2019-05-21] MEDS: CARVEDILOL 3.125 MG TABLET PO SCH ×2 (08:25→20:51)
[2019-05-21] MEDS: CYANOCOBALAMIN 1000MCG TABLET PO SCH (08:27)
[2019-05-21] MEDS ORDERED: KETOROLAC 15MG/ML VIAL IV NR (11:45)
[2019-05-21 12:00] VITALS: BP 134/69
[2019-05-21 13:09] LABS: HEMATOCRIT. 26.6 % (36.0-48.0); MEAN CORPUSCULAR HEMOGLOBIN 33.3 pg (28.0-32.0); MEAN CORPUSCULAR VOLUME 98.9 fL (81.0-99.0); MEAN PLATELET VOLUME 10.1 fl (7.4-10.4); RED BLOOD CELL COUNT 2.69 mill/uL (4.2-5.4); RED CELL DISTRIBUTION WIDTH 21.4 % (11.6-14.6)
[2019-05-21 13:13] LABS: PLATELET 42 x1000/uL (130-400)
[2019-05-21 13:23] LABS: CHLORIDE 101 mEq/L (98-107)
[2019-05-21] MEDS: LEVOFLOXACIN 750MG PREMIX 150 ML IV SCH (13:43)
[2019-05-21 14:14] LABS: PLATELET ESTIMATE MARKEDLY DECREASED
[2019-05-21 16:00] VITALS: BP 144/46
[2019-05-21 20:00] VITALS: BP 138/52
[2019-05-22] VITALS: BP 144/55
[2019-05-22 04:00] VITALS: BP 136/61
[2019-05-22 06:45] LABS: HEMATOCRIT. 25.2 % (36.0-48.0); HEMOGLOBIN. 8.3 g/dL (12.0-16.0); MEAN CORPUSCULAR HEMOGLOBIN 32.5 pg (28.0-32.0); MEAN CORPUSCULAR VOLUME 98.1 fL (81.0-99.0); RED BLOOD CELL COUNT 2.56 mill/uL (4.2-5.4); RED CELL DISTRIBUTION WIDTH 20.7 % (11.6-14.6)
[2019-05-22 07:30] VITALS: BP 147/59
[2019-05-22 07:44] LABS: PLATELET 37 x1000/uL (130-400)
[2019-05-22] MEDS: LENALIDOMIDE 25 MG PO SCH (08:56)
[2019-05-22] MEDS: FUROSEMIDE 40MG/4ML VIAL IVP SCH (08:56)
[2019-05-22] MEDS: HYDROCODONE/ACETAMINOPHEN 5/325MG TABLET PO PRN ×2 (08:57→18:37)
[2019-05-22] MEDS: DEXAMETHASONE 4MG TABLET PO SCH (08:57)
[2019-05-22] MEDS: POTASSIUM CHLORIDE 20MEQ TABLET SR PO SCH (08:57)
[2019-05-22] MEDS: CHOLECALCIFEROL (D3) 1000 UNIT TABLET PO SCH (08:57)
[2019-05-22] MEDS: CARVEDILOL 3.125 MG TABLET PO SCH ×2 (08:57→20:47)
[2019-05-22] MEDS: CYANOCOBALAMIN 1000MCG TABLET PO SCH (08:58)
[2019-05-22 10:38] LABS: PLATELET ESTIMATE MARKEDLY DECREASED
[2019-05-22 12:00] VITALS: BP 133/65
[2019-05-22 16:00] VITALS: BP 148/58
[2019-05-22 20:00] VITALS: BP 152/55
[2019-05-23] VITALS (7 sets, daily range): BP systolic 126–149; BP diastolic 50–76
[2019-05-23 07:40] LABS: CHLORIDE 105 mEq/L (98-107)
[2019-05-23 07:47] LABS: HEMATOCRIT 25.7 % (36.0-48.0); HEMOGLOBIN 8.5 g/dL (12.0-16.0); MEAN CORPUSCULAR HEMOGLOBIN 32.3 pg (28.0-32.0); MEAN CORPUSCULAR VOLUME 97.3 fL (81.0-99.0); RED BLOOD CELL COUNT 2.64 mill/uL (4.2-5.4); RED CELL DISTRIBUTION WIDTH 20.9 % (11.6-14.6)
[2019-05-23] MEDS: FUROSEMIDE 40MG/4ML VIAL IVP SCH (08:44)
[2019-05-23] MEDS: POTASSIUM CHLORIDE 20MEQ TABLET SR PO SCH (08:44)
[2019-05-23] MEDS: DEXAMETHASONE 4MG TABLET PO SCH (08:44)
[2019-05-23] MEDS: CHOLECALCIFEROL (D3) 1000 UNIT TABLET PO SCH (08:44)
[2019-05-23] MEDS: CARVEDILOL 3.125 MG TABLET PO SCH (08:45)
[2019-05-23] MEDS: LENALIDOMIDE 25 MG PO SCH (08:45)
[2019-05-23] MEDS: CYANOCOBALAMIN 1000MCG TABLET PO SCH (08:47)
[2019-05-23] MEDS: LEVOFLOXACIN 750MG PREMIX 150 ML IV SCH (12:19)
[2019-05-23 13:28] LABS: PLATELET 41 x1000/uL (130-400)
[2019-05-23] MEDS ORDERED: MORPHINE SULFATE 2 MG/ML CPJ (NOT FOR IM USE) IV PRN (14:45)
[2019-05-23] MEDS: HYDROCODONE/ACETAMINOPHEN 5/325MG TABLET PO PRN (16:20)
== END 2019-05-23 21:20 | DRG 291 ==
LOC: ER 09:40 → 8WST 14:41 → ENRESERV 15:22
PROVIDERS: ADMIT Internal Medicine; ATTEND Internal Medicine
DX: I13.0 Hypertensive heart and chronic kidney disease with heart failure and stage 1 through stage 4 chronic kidney disease, or unspecified chronic kidney disease (principal); I50.43 Acute on chronic combined systolic (congestive) and diastolic (congestive) heart failure; C90.00 Multiple myeloma not having achieved remission; I48.0 Paroxysmal atrial fibrillation; R26.9 Unspecified abnormalities of gait and mobility; J45.909 Unspecified asthma, uncomplicated; E87.6 Hypokalemia; D64.9 Anemia, unspecified; D69.6 Thrombocytopenia, unspecified; K57.90 Diverticulosis of intestine, part unspecified, without perforation or abscess without bleeding; E05.90 Thyrotoxicosis, unspecified without thyrotoxic crisis or storm; N18.9 Chronic kidney disease, unspecified; Z88.0 Allergy status to penicillin; Z88.9 Allergy status to unspecified drugs, medicaments and biological substances; Z88.5 Allergy status to narcotic agent; Z87.81 Personal history of (healed) traumatic fracture; D72.829 Elevated white blood cell count, unspecified
CPT/HCPCS: 36415; 71045; 71110; 72192; 72195; 73502; 73700; 73718; 74176; 80048; 80061; 81003; 82550; 82553; 83605; 84145; 84484; 85027; 86850; 86900; 93005; 96361; 96365; 96366; 96375; 97162; 97530; 99285; J1885; J1940; J1956; J2270; J2405; J7030; J8540; A4315